=== PATIENT | female | born 1960 | race Caucasian/White ===

== ENCOUNTER 2018-09-16 17:38 | Emergency (ER) | payer OTHER ==
[2018-09-16 18:01] VITALS: BP 133/79; PULSE 103; TEMP 100; BMI 29.9
--- NOTE | 2018-09-16 18:05 | PDOC ---
Rapid Medical Evaluation Chief Complaint: Sore Throat Time Seen by Provider: 09/16/18 17:57 Medical Evaluation: Allergies Allergy/AdvReac Type Severity Reaction Status Date / Time acetaminophen [From Percocet] Allergy Severe Itching Verified 09/16/18 17:58 oxycodone [From Percocet] Allergy Severe Itching Verified 09/16/18 17:58 IV contrast Allergy Severe Difficulty Uncoded 09/16/18 17:58 Breathing Vital Signs Temp Pulse Resp BP Pulse Ox 100.0 F H 103 H 18 133/79 98 09/16/18 17:50 09/16/18 17:50 09/16/18 17:50 09/16/18 17:50 09/16/18 17:50 09/16/18 18:04 I have performed a brief in-person evaluation of this patient. The patient presents with a chief complaint of: sore throat and fever since yesterday. grandchild with positive strep throat Pertinent physical exam findings: mild throat erythema I have ordered the following: rapid strep. throat cx The patient will proceed to the ED for further evaluation. Discharge Disposition - Diagnosis Pharyngitis Qualifiers: Pharyngitis/tonsillitis etiology: unspecified etiology Qualified Code(s): J02.9 - Acute pharyngitis, unspecified - Referrals - Patient Instructions - Post Discharge Activity
--- NOTE | 2018-09-16 18:54 | PDOC ---
History of Present Illness - General Chief Complaint: Sore Throat Stated Complaint: FEVER, SORE THROAT Time Seen by Provider: 09/16/18 17:57 History Source: Patient Exam Limitations: No Limitations - History of Present Illness Initial Comments: 09/16/18 18:48 HISTORY OF PRESENT ILLNESS: 57-year-old woman with past medical history of diabetes, hypertension, hyperlipidemia who presents emergency department for evaluation of sore throat for the past 4 days. Patient states the pain in the throat progressively got worse and today noticed a swelling on the left side of her throat. Patient states her granddaughter was with her this weekend who had a positive strep testing is currently being treated for strep throat. Her nephew is a mid student who exam her throat and noticed what he thought to be a peritonsillar abscess present. Donald stuck a needle into the DISTRIBUTION TECHNICIAN which he stated drained pus. Patient denies sore throat at this time. No recent travel. PAST MEDICAL HISTORY: see hpi SURGICAL HISTORY: Denies ALLERGIES: percocet, IV dye REVIEW OF SYSTEMS General/Constitutional: +fever and chills. Denies weakness, weight change. HEENT: Denies change in vision. Denies ear pain or discharge. +sore throat. Cardiovascular: Denies chest pain or shortness of breath. Respiratory: Dry unproductive cough. Denies wheezing, or hemoptysis. Gastrointestinal: Denies nausea, vomiting, diarrhea or constipation. Denies rectal bleeding. Genitourinary: Denies dysuria, frequency, or change in urination. Musculoskeletal: Denies joint or muscle swelling or pain. Denies neck or back pain. Skin and breasts: Denies rash or easy bruising. Neurologic: Denies headache, vertigo, loss of consciousness, or loss of sensation. Psychiatric: Denies depression or anxiety. Endocrine: Denies increased thirst. Denies abnormal weight change. Hematologic/Lymphatic: Denies anemia, easy bleeding, or history of blood clots. Allergic/Immunologic: Denies hives or skin allergy. Denies latex allergy. PHYSICAL EXAM General Appearance: Well-appearing, appropriately dressed. No apparent distress , no intoxication. HEENT: EOMI, PERRLA, normal ENT inspection, normal voice, TMs normall. No conjunctival pallor. No photophobia, scleral icterus. Oropharynx erythematous with tonsillar erythema and +2 swelling. No exudates or lesions present. No palpable abscess present. Neck: Supple. Trachea midline. No tenderness, rigidity, carotid bruit, stridor , lymphadenopathy, or thyromegaly. Respiratory/Chest: Lungs CTAB. No shortness of breath, chest tenderness, respiratory distress, accessory muscle use. No crackles, rales, rhonchi, stridor , wheezing, dullness Cardiovascular: RRR. S1, S2. No JVD, murmur, bradycardia, tachycardia. Vascular Pulses: Dorsalis-Pedis (R): 2+, Dorsalis-Pedis (L): 2+ Gastrointestinal/Abdominal: Normal bowel sounds. Abdomen soft, non-distended. No tenderness or rebound tenderness. No organomegaly, pulsatile mass, guarding, hernia, hepatomegaly, splenomegaly. Lymphatic: No adenopathy, tenderness. Musculoskeletal/Extremities: Normal inspection. FROM of all extremities, normal capillary refill. Pelvis Stable. No CVA tenderness. No tenderness to extremities, pedal edema, swelling, erythema or deformity. Integumentary: Appropriate color, dry, warm. No cyanosis, erythema, jaundice or rash Neurologic: discharge planner II-XII intact. Fully oriented, alert. Appropriate mood/affect. Motor strength 5/5. No appreciable EOM palsy, facial droop or sensory deficit. Past History - Past Medical History Allergies/Adverse Reactions: Allergies Allergy/AdvReac Type Severity Reaction Status Date / Time acetaminophen [From Percocet] Allergy Severe Itching Verified 09/16/18 17:58 oxycodone [From Percocet] Allergy Severe Itching Verified 09/16/18 17:58 IV contrast Allergy Severe Difficulty Uncoded 09/16/18 17:58 Breathing Home Medications: Ambulatory Orders Amoxicillin - [Amoxicillin 500mg Capsule -] 500 mg PO BID #20 capsule 09/16/18 Ondansetron [Zofran Odt -] 4 mg SL BID #20 od.tablet 09/16/18 Asthma: Yes COPD: No Diabetes: Yes HTN: Yes Hypercholesterolemia: Yes - Surgical History Abdominal Surgery: Yes (liliam harvey) - Immunization History Immunization Up to Date: Yes - Suicide/Smoking/Psychosocial Hx Smoking History: Never smoked Hx Alcohol Use: No Drug/Substance Use Hx: No *Physical Exam - Vital Signs Last Vital Signs Temp Pulse Resp BP Pulse Ox 100.0 F H 103 H 18 133/79 98 09/16/18 17:50 09/16/18 17:50 09/16/18 17:50 09/16/18 17:50 09/16/18 17:50 ED Treatment Course - ADDITIONAL ORDERS Additional order review: 09/16/18 18:00 Group A Strep Rapid Antigen - Preliminary Throat Medical Decision Making - Medical Decision Making 09/16/18 19:07 A/P: 57-year-old woman history of diabetes hypertension with sore throat for 4 days Rapid strep testing Decadron 10 mg Discharge home Rapid strep testing is negative. As patient is diabetic I will treat as patient had a questionable peritonsillar abscess. *DC/Admit/Observation/Transfer Diagnosis at time of Disposition: Pharyngitis Qualifiers: Pharyngitis/tonsillitis etiology: unspecified etiology Qualified Code(s): J02.9 - Acute pharyngitis, unspecified - Discharge Dispostion Disposition: HOME Condition at time of disposition: Stable Decision to Admit order: No - Prescriptions Prescriptions: Amoxicillin - [Amoxicillin 500mg Capsule -] 500 mg PO BID #20 capsule Ondansetron [Zofran Odt -] 4 mg SL BID #20 od.tablet - Referrals Referrals: ON STAFF,NOT [Primary Care Provider] - - Patient Instructions Additional Instructions: Take amoxicillin as prescribed. Salt water garggles. Throw away your toothbrush in 3 days and start using a new toothbrush. No sharing of drinks, utensils or toothbrushes. Take Motrin as directed by aviation engineer's instructions. Return to ED for worsening fevers, worsening sore throat, chest pain, shortness of breath or any other concerns. - Post Discharge Activity
[2018-09-16] MEDS ORDERED: DEXAMETHASONE LIQUID 0.5 MG/5 ML 240 ML BULK BOTTLE PO ONE (18:56)
[2018-09-16] MEDS ORDERED: DEXAMETHASONE SOD PHOSPHATE 10 MG/1 ML VIAL ONE (19:00)
[2018-09-16] MEDS ORDERED: AMOXICILLIN 250 MG CAPSULE ONE (19:02)
[2018-09-16] MEDS ORDERED: AMOXICILLIN 500 MG CAPSULE (FP) PO ONE (19:04)
== END 2018-09-16 19:42 | disposition home or self-care (01) ==
LOC: JERFT 17:38
DX: J02.9 Acute pharyngitis, unspecified (principal); I10 Essential (primary) hypertension; E78.00 Pure hypercholesterolemia, unspecified; E11.9 Type 2 diabetes mellitus without complications
CPT/HCPCS: 87070; 87430; 99281-25

== ENCOUNTER 2019-05-25 14:44 | Emergency (ER) | payer OTHER ==
[2019-05-25 14:58] VITALS: BP 110/68; PULSE 98; TEMP 98.3; BMI 29.2
--- NOTE | 2019-05-25 15:47 | PDOC ---
History of Present Illness - General Chief Complaint: Injury Stated Complaint: LT. FOOT PAIN/ FALL Time Seen by Provider: 05/25/19 15:17 History Source: Patient - History of Present Illness Initial Comments: 05/25/19 15:46 58-year-old female complaining of left third toe pain after tripping and falling prior to arrival. Denies head injury, neck pain, headache. Patient is noted to have bruising to the distal end of the toe. 05/25/19 16:07 Past History - Past Medical History Allergies/Adverse Reactions: Allergies Allergy/AdvReac Type Severity Reaction Status Date / Time acetaminophen [From Percocet] Allergy Severe Itching Verified 05/25/19 14:54 oxycodone [From Percocet] Allergy Severe Itching Verified 05/25/19 14:54 IV contrast Allergy Severe Difficulty Uncoded 05/25/19 14:54 Breathing Home Medications: Ambulatory Orders Amoxicillin - [Amoxicillin 500mg Capsule -] 500 mg PO BID #20 capsule 09/16/18 Ondansetron [Zofran Odt -] 4 mg SL BID #20 od.tablet 09/16/18 Asthma: Yes COPD: No Diabetes: Yes HTN: Yes Hypercholesterolemia: Yes - Surgical History Abdominal Surgery: Yes (tummy tuck) - Immunization History Immunization Up to Date: Yes - Suicide/Smoking/Psychosocial Hx Smoking History: Never smoked Have you smoked in the past 12 months: No Hx Alcohol Use: No Drug/Substance Use Hx: No Review of Systems - Review of Systems Able to Perform ROS?: Yes Is the patient limited Persian proficient: No Musculoskeletal: Yes: Other (toe pain) *Physical Exam - Vital Signs Last Vital Signs Temp Pulse Resp BP Pulse Ox 98.3 F 98 H 16 110/68 98 05/25/19 14:55 05/25/19 14:55 05/25/19 14:55 05/25/19 14:55 05/25/19 14:55 - Physical Exam General Appearance: Yes: Appropriately Dressed Extremity: positive: Other (left 3rd toe distal end bruising noted. ) Progress Note - Progress Note Progress Note: A: left great toe injury P: xray lefty tapes toes. podiatry follow up *DC/Admit/Observation/Transfer Diagnosis at time of Disposition: Injury of left toe Qualifiers: Encounter type: initial encounter Qualified Code(s): S99.922A - Unspecified injury of left foot, initial encounter - Discharge Dispostion Disposition: HOME - Referrals Referrals: Mike Okeefe MD [Primary Care Provider] - Triston Durán MD [Staff Physician] - Varinder Quezada DPM [Staff Physician] - - Patient Instructions Printed Discharge Instructions: Toe Sprain Additional Instructions: rest keep tape on toe elevate foot follow up with a spinner operator as soon as possible . - Post Discharge Activity Forms/Work/School Notes: Back to Work
== END 2019-05-25 16:17 | disposition home or self-care (01) ==
LOC: JERFT 14:44
DX: S92.515A Nondisplaced fracture of proximal phalanx of left lesser toe(s), initial encounter for closed fracture (principal); W01.0XXA Fall on same level from slipping, tripping and stumbling without subsequent striking against object, initial encounter; Y93.89 Activity, other specified; Y92.89 Other specified places as the place of occurrence of the external cause; Y99.8 Other external cause status; I10 Essential (primary) hypertension; E78.00 Pure hypercholesterolemia, unspecified; E11.9 Type 2 diabetes mellitus without complications; J45.909 Unspecified asthma, uncomplicated
CPT/HCPCS: 73660-TC-LT-FY; 99281-25